=== PATIENT | male | born 1945 | race Caucasian/White ===

== ENCOUNTER → 2017-05-29 | Outpatient (CLI) | payer MEDICARE ==
[~2017-05-29] MED LIST: ASP325T PO; ASPI-586 PO; E400C PO; ENAL1TAB16 PO; HYDR-3583 PO; IBP600T1 PO; LEVO125T6 PO; MULT-608 PO; OMEG1CAP53 PO; SIMV20TA3 PO
--- NOTE | 2017-05-29 16:01 | Diagnostic Imaging Report ---
PROCEDURE: MRI lumbar spine. TECHNIQUE: Multiplanar, multisequence MRI of the lumbar spine was performed without contrast. INDICATION: Back pain. FINDINGS: There are no previous MRI examinations available for comparison. The lumbar spine exam performed on 03/06/2016 noted diffuse degenerative disease without evidence for an acute abnormality. On the T2 sagittal series of this exam, there is desiccation the disc at every level and narrowing of the disc spaces at L4-L5 and to a lesser degree L3-L4 and L5-S1. At the L5-S1 level, there is a focal disc protrusion to the left. The disc compresses the left ventral aspect of the thecal sac, resulting in mild spinal stenosis. The disc material does seem to be encroaching upon the exiting left nerve root at this level. At the L4-L5 level, there is a broad-based disc bulge centrally. The disc flattens the ventral aspect of the thecal sac and narrows the AP diameter of the thecal sac to 12.1 mm. There is also mild narrowing of the neuroforamen bilaterally at this level, particularly on the right. At the L3-L4 level, there is a disc bulge centrally which narrows the AP diameter of the thecal sac to 13.1 mm. There is also mild narrowing of the neuroforamen bilaterally at this level, again more so on the right. At L2-L3, the AP diameter of the thecal sac measures 8.3 mm. There is mild neuroforaminal narrowing bilaterally. At the L1-L2 level, there is no evidence for spinal stenosis or nerve root encroachment. There is a mild (10% or less) compression deformity of the superior endplate of L2. I suspect that this is longstanding in nature. There is no acute bony abnormality noted. There is no sign of a cord lesion. There is no paraspinal mass visualized. IMPRESSION: 1. There is a focal disc protrusion to the left at L5-S1. The disc does produce mild central stenosis but also appears to encroach upon the exiting left nerve root at this level. 2. There is mild trefoil stenosis at L2-L3 and mild narrowing of the neuroforamen bilaterally. 3. The remainder of the lumbar spine is unremarkable for spinal stenosis or nerve root encroachment. 4. There is a longstanding compression deformity of L2. There is no acute bony abnormality noted. Dictated by: Dictated on workstation # [id number]
== END ==
LOC: RAD 14:41
PROVIDERS: ATTEND Family Medicine
DX: M48.07 Spinal stenosis, lumbosacral region (principal); M51.17 Intervertebral disc disorders with radiculopathy, lumbosacral region; M43.8X6 Other specified deforming dorsopathies, lumbar region
CPT/HCPCS: 72148

== ENCOUNTER 2018-11-17 23:14 | Emergency (ER) | payer MEDICARE ==
[~2018-11-17] VITALS: Ht 180.3 cm; Wt 93.0 kg
[2018-11-17] MEDS ORDERED: TETANUS,DIPTH,PERTUSS P/F (BOOSTRIX) 0.5 ML VIAL IM ONE (23:45)
[2018-11-17] MEDS ORDERED: LIDOCAINE/EPI 2% 1:100,00 (XYLOCAINE) 20 ML VIAL INJ ONE (23:45)
[2018-11-18] MEDS ORDERED: SULF1TAB35 PO (00:10)
--- NOTE | 2018-11-18 00:10 | ED Upper Extremity ---
General Chief Complaint: Upper Extremity Stated Complaint: LEFT HAND LAC Nursing Triage Note: FELL COMMING UP STAIRS FROM THE BASEMENT AT HIS HOME AND CUT HIS LEFT HAND Nursing Sepsis Screen: No Definite Risk Source: patient History of Present Illness Date Seen by Provider: Nov 17, 2018 Time Seen by Provider: 23:34 Initial Comments PT ARRIVES VIA POV FROM HOME IN [place] C/O LACERATION TO LEFT HAND STATES ARMANDO RADFORD HAD GONE OFF IN [place], AND HAD BEEN IN BASEMENT HE WAS GETTING OUT OF THE BASEMENT, HE HAD HIS ARMS FULL, AND LOST HIS BALANCE, AND FELL AGAINST THE SHARP EDGE OF A METAL LOCKER, CUTTING HIS HAND. OCCURRED AROUND 2 HOURS AGO. NO PARESTHESIAS OR MOTOR DEFICITS NO OTHER INJURIES FROM THE INCIDENT NO PRIOR INJURIES TO THIS HAND PT IS RIGHT HANDED LAST TETANUS > 5 YEARS AGO PCP: DR. TOVAR Allergies and Home Medications Allergies Coded Allergies: No Known Drug Allergies (Verified , 11/18/18) Home Medications Aspirin 81 Mg Tablet.dr, 81 MG PO DAILY, (Reported) Enalapril/Hydrochlorothiazide 1 Tab Tablet, 1 TAB PO DAILY, (Reported) Levothyroxine Sodium 125 Mcg Tablet, 125 MCG PO DAILY, (Reported) Multivitamins 1 Tab Tablet, 1 TAB PO DAILY, (Reported) Devens-3 Fatty Acids/Fish Oil 1 Each Capsule.dr, 1,000 MG PO DAILY, (Reported) Simvastatin 20 Mg Tablet, 20 MG PO HS, (Reported) Sulfamethoxazole/Trimethoprim 1 Each Tablet, 1 EACH PO BID Prescribed by: MARGA AUGUSTIN on 11/18/18 0010 Vitamin E Acetate 400 Unit Capsule, 400 UNIT PO DAILY, (Reported) Patient Home Medication List Home Medication List Reviewed: Yes Review of Systems Constitutional: no symptoms reported Musculoskeletal: see HPI Skin: see HPI Psychiatric/Neurological: No Symptoms Reported Past Rtcejph-Dydqxc-Vpugve Hx Patient Social History Alcohol Use: Denies Use Recreational Drug Use: No Recent Foreign Travel: No Contact w/Someone Who Travel: No Recent Infectious Disease Expo: No Physical Abuse: No Sexual Abuse: No Mistreated: No Fear: No Immunizations Up To Date Tetanus Booster (TDap): More than 5yrs Date of Pneumonia Vaccine: July 26, 2010 Date of Influenza Vaccine: Jan 18, 2018 Past Medical History Surgeries: Yes (COLONOSCOPIES/POLYPECTOMIES WITH RIGHT HEMICOLECTOMY FOR POLYPS--NON-MALIGNANT) Abdominal, Bowel Surgery Respiratory: No Cardiac: Yes High Cholesterol, Hypertension Neurological: No Reproductive Disorders: No Genitourinary: No Gastrointestinal: Yes (POLYPECTOMIES AND RIGHT PRIYANKA-COLECTOMY FOR BENIGN POLYPS) Polyps Musculoskeletal: No Endocrine: Yes Hypothyroidsim HEENT: No (GLASSES) Cancer: No Psychosocial: No Integumentary: No Blood Disorders: No Physical Exam Vital Signs Vital Signs - First Documented 11/17/18 23:30 Temp 97.1 Pulse 91 Resp 18 B/P (MAP) 168/91 (116) Pulse Ox 92 Capillary Refill : Less Than 3 Seconds Height, Weight, BMI Height: 5'11.00" Weight: 205lbs. 0oz. 92.754651pd; 29.3 BMI Method:Stated General Appearance: WD/WN, no apparent distress Hand: Left (DORSAL ASPECT OF HAND OVER 5TH METACARPAL AREA WITH 3 CM FULL THICKNESS LINEAR LACERATION, MILD OOZING NOTED. MOTOR/SENSORY/VASCULAR INTACT. NO TENDON INJURY NOTED. NO FOREIGN BODY IDENTIFIED. 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, no motor/sensory deficits, alert, normal mood/affect, oriented x 3 Skin: normal color, warm/dry, other (LACERATION NOTED ABOVE) Procedures/Interventions Other Wound Location LEFT HAND Wound Length (cm): 3 Wound's Depth, Shape: linear, sub Q Wound Explored: clean Irrigated w/ Saline (ccs): 50 Betadine Prep?: No (BETASEPT) Anesthesia: Lidocaine w/ Epi (2%) Staple Repair: Stapler 35W Number of Sutures: 7 (ARLYN) Layer Closure?: 1 Sterile Dressing Applied?: Yes Progress/Results/Core Measures Results/Orders My Orders Orders - MARGA AUGUSTIN DO Dipht,Pertuss(Acell),Tet Adult (Boostrix (11/17/18 23:45) Lidocaine/Epi 2% 1:100,000 (Xylocaine/Ep (11/17/18 23:45) Sulfamethoxazole/Trimet Ds Tab (Bactrim (11/18/18 00:15) Wound Dressing-Ed (11/18/18 00:06) Medications Given in ED Current Medications Medications Dose Ordered Sig/Lamberto Route Start Time Stop Time Status Last Admin Dose Admin Diphtheria/ Tetanus/Acell Pertussis 0.5 ml ONCE ONCE IM 11/17/18 23:45 11/17/18 23:46 DC 11/17/18 23:56 0.5 ML Lidocaine/ Epinephrine 20 ml ONCE ONCE INJ 11/17/18 23:45 11/17/18 23:46 DC 11/17/18 23:57 20 ML Vital Signs/I&O 11/17/18 23:30 Temp 97.1 Pulse 91 Resp 18 B/P (MAP) 168/91 (116) Pulse Ox 92 Blood Pressure Mean: 116 Departure Impression Primary Impression: Laceration of left hand Additional Impression: Elksdtxrje-gjufajcjv-kdsglqq (DPT) vaccination administered at current visit Disposition: HOME, SELF-CARE Condition: Stable Departure-Patient Inst. Referrals: GLENN TOVAR MD (PCP/Family) Primary Care Physician Patient Instructions: Diphtheria and Tetanus Toxoids, and Acellular Pertussis Vaccine, Laceration Repair With Arlyn (DC) Add. Discharge Instructions: ICE TO AREA AT 20 MINUTE INTERVALS APPLY PRESSURE NEEDED IF AREA STARTS TO BLEED TYLENOL AND MOTRIN NEEDED FOR PAIN CLEAN AREA TWICE A DAY WITH ANTIBACTERIAL SOAP AND WATER, APPLY FRESH DRESSING TWICE A DAY ARLYN OUT IN 10-14 DAYS--RETURN TO ER FOR REMOVAL All discharge instructions reviewed with patient and/or family. Voiced understanding. Scripts Sulfamethoxazole/Trimethoprim (Bactrim Ds Tablet) 1 Each Tablet 1 EACH PO BID, #20 TAB Prov: MARGA AUGUSTIN DO 11/18/18 Images Extremities-Upper 1 - Laceration MARGA AUGUSTIN DO Nov 18, 2018 00:10
[2018-11-18] MEDS ORDERED: TRIM/SULFAMETH 160/800 (SEPTRA DS) TAB PO ONE (00:15)
[2018-11-18 00:19] VITALS: BP 168/91
== END 2018-11-18 00:19 | disposition home or self-care (01) ==
LOC: EDUNIT# 23:14 → ER 23:16
DX: S61.412A Laceration without foreign body of left hand, initial encounter (principal); I10 Essential (primary) hypertension; E78.00 Pure hypercholesterolemia, unspecified; E03.9 Hypothyroidism, unspecified; Z86.010 Personal history of colon polyps; Z23 Encounter for immunization; Z79.82 Long term (current) use of aspirin; W01.118A Fall on same level from slipping, tripping and stumbling with subsequent striking against other sharp object, initial encounter
CPT/HCPCS: 12002; 90715

== ENCOUNTER 2018-12-02 11:46 | Emergency (ER) | payer MEDICARE ==
[~2018-12-02] VITALS: Ht 180 cm; Wt 93.0 kg
[~2018-12-02 11:46] MED LIST changes: +SULF1TAB35 PO
[2018-12-02 12:24] VITALS: BP 116/71
== END 2018-12-02 12:24 | disposition home or self-care (01) ==
LOC: EDUNIT# 11:46 → ER 11:46
DX: S61.412A Laceration without foreign body of left hand, initial encounter (principal); X58.XXXA Exposure to other specified factors, initial encounter

== ENCOUNTER 2021-01-11 05:36 | Outpatient (CLI) | payer MEDICARE ==
[~2021-01-11] VITALS: Ht 180.3 cm; Wt 93.0 kg
[~2021-01-11 05:36] MED LIST changes: -SULF1TAB35 PO; +SULF1TAB38 PO
== END 2021-01-11 11:49 | disposition home or self-care (01) ==
LOC: PREOP 05:36
PROVIDERS: ATTEND Surgery
DX: Z01.818 Encounter for other preprocedural examination (principal)

== ENCOUNTER 2021-01-18 09:19 | Day surgery (SDC) | payer MEDICARE ==
--- NOTE | 2021-01-11 08:09 | HISTORY AND PHYSICAL ---
DATE OF SERVICE: DATE OF ADMISSION: ____. PROCEDURE DATE: 01/18/2021. ATTENDING PRIMARY CARE PHYSICIAN: Antonio Keating MD HISTORY OF PRESENT ILLNESS: The patient is a 75-year-old male who is known to us. He is in need of a followup colonoscopy. He did undergo a colonoscopy in 2011 and was found to have a large sessile as well as one small sessile polyp of the splenic flexure. These were consistent with a tubular adenoma. He was also found to have a larger sessile polyp at the ascending colon. 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 He did undergo a right hemicolectomy in 2011. He had a followup colonoscopy in 2012 by us, where he was found to have moderate sigmoid diverticulosis. He then underwent another followup colonoscopy in 09/2015, where he was found again to have a moderate sigmoid diverticulosis and a normal anastomosis. On today's visit, he reports that he is doing well. He denies any blood in the stool. He also denies any family history of any colon cancer. He reports that he is not having any issues with any diarrhea, constipation or any abdominal pain. PAST MEDICAL HISTORY: Hypertension, hypercholesterolemia, and hypothyroidism. PAST SURGICAL HISTORY: Right hemicolectomy in 2011, tonsillectomy and adenoidectomy. ALLERGIES: No known drug allergies. MEDICATIONS: Vitamin E, fish oil, multivitamin, aspirin 81 mg daily, simvastatin 20 mg daily, enalapril/hydrochlorothiazide 10/25 mg daily, and levothyroxine 125 mcg daily. SOCIAL HISTORY: Previous for tobacco smoke for 25 pack years, quit in 1995 and daily for alcohol. FAMILY HISTORY: Mother, lung cancer. Maternal grandfather, lung cancer. REVIEW OF SYSTEMS: A well-nourished male in no acute distress. He is not experiencing any shortness of breath or difficulty breathing. No chest pain, palpitations or diaphoresis. No nausea, vomiting or abdominal pain. No diarrhea or constipation. No red blood per rectum. No dark tarry stools. No fever or chills. No recent inadvertent weight loss. All other review of systems negative. PHYSICAL EXAMINATION: VITAL SIGNS: Blood pressure is 152/86. Current weight is 188.4 pounds at 5 feet 11 inches. CHEST: Clear. Good breath sounds bilaterally. HEART: Regular and no murmurs. EXTREMITIES: No lower extremity edema. Negative Homans sign. HEENT: No scleral icterus. NECK: No cervical lymphadenopathy. ABDOMEN: Soft, nontender, and nondistended. SKIN: Warm, dry and pink. NEUROLOGIC: Awake, alert and oriented x3. ASSESSMENT AND PLAN: A 75-year-old male with a history of colon polyps, who is status post right hemicolectomy in 2011 for a polyp with high-grade dysplasia. At this time, we will proceed with scheduling him for a screening colonoscopy. Job ID: [id number] DocumentID: [id number] Dictated Date: 01/06/2021 13:06:32 Automotive Mechanic Date: 01/06/2021 13:24:42 Dictated By: KINA JOE APRN
[2021-01-18] VITALS (7 sets, daily range): BP systolic 104–144; BP diastolic 68–82
[~2021-01-18] VITALS: Ht 180.3 cm; Wt 93.0 kg
[2021-01-18] MEDS ORDERED: LACTATED RINGERS 1,000 ML IV ONE (09:26)
[2021-01-18] MEDS ORDERED: LACTATED RINGERS 1,000 ML IV STA (09:29)
[2021-01-18] MEDS ORDERED: LIDOCAINE JELLY 2% 6 ML SYRINGE MM PRN (09:30)
[2021-01-18] MEDS ORDERED: MIDAZOLAM 2 MG/2 ML (VERSED) VIAL ONE (09:47)
[2021-01-18] MEDS ORDERED: PROPOFOL INJECTION 50 ML IV ONE (09:47)
--- NOTE | 2021-01-18 09:55 | Progress Note-Pre Operative ---
Pre-Operative Progress Note H&P Reviewed The H&P was reviewed, patient examined and no changes noted. Date Seen by Provider: Jan 18, 2021 Time Seen by Provider: : Date H&P Reviewed: Jan 18, 2021 Time H&P Reviewed: :30 Pre-Operative Diagnosis: hx polyps PAYAM BAIRD MD Jan 18, 2021 09:54
--- NOTE | 2021-01-18 09:56 | Discharge Inst-Surgical ---
D/C Lap Instructions-OLI Follow Up Activity as tolerated High Fiber Diet 25g or more per day Avoid Alcohol, Caffeine, Spicy [place] and Acid foods. Drink 64 fluid oz or more of fluids per day. Symptoms to Report: Fever over 101 degree F, Nausea/Vomiting If any problems/questions: Contact your physician or go to Emergency Room PAYAM BAIRD MD Jan 18, 2021 09:56
[2021-01-18] MEDS ORDERED: ONDANSETRON 4 MG (ZOFRAN) ORAL DISSOLVE TAB PO PRN (10:00)
[2021-01-18] MEDS ORDERED: ONDANSETRON 4 MG/2 ML (SDV) Z0FRAN IVP PRN (10:00)
--- NOTE | 2021-01-18 10:31 | Progress Note-Post Operative ---
Post-Operative Progess Note Surgeon (s)/Labour Market Economist (s) Surgeon PAYAM BAIRD MD Labour Market Economist: none Pre-Operative Diagnosis hx polyps Post-Operative Diagnosis chronic stage 2 ext and int hemorrhoids, mod-severe sigmoid diverticulosis. Procedure & Operative Findings Date of Procedure 01/18/21 Procedure Performed/Findings colonoscopy Anesthesia Type mac Estimated Blood Loss Estimated blood loss (mL): minimal Specimens/Packing Specimens Removed none PAYAM BAIRD MD Jan 18, 2021 10:31
--- NOTE | 2021-01-18 14:38 | OPERATIVE REPORT ---
DATE OF SERVICE: 01/18/2021 ATTENDING PRIMARY CARE PHYSICIAN: Dr. Atilio Keating. PREOPERATIVE DIAGNOSIS: Screening colonoscopy with history of sessile polyp with high-grade dysplasia, status post right hemicolectomy in 2012. POSTOPERATIVE DIAGNOSES: Screening colonoscopy with history of sessile polyp with high-grade dysplasia, status post right hemicolectomy in 2012 with mild chronic stage II external and internal hemorrhoids, xbjeukyv-lz-jjzqmj sigmoid diverticulosis. PROCEDURE: Colonoscopy. SURGEON: Payam Baird MD ANESTHESIA: Monitored anesthesia care. ESTIMATED BLOOD LOSS: Minimal. FINDINGS: Same as postoperative diagnoses. DISPOSITION: The patient tolerated the procedure well. INDICATIONS: The patient is a 75-year-old male known to us. He is in need of a followup colonoscopy. He underwent a colonoscopy in 2012 and was found to have large sessile polyp at the splenic flexure as well as the ascending colon, which were biopsied and found to contain high-grade dysplasia and he underwent a right hemicolectomy. He is otherwise doing well and does state some issues with constipation, no red blood per rectum, no dark tarry stools. DESCRIPTION OF PROCEDURE: The patient was brought to the endoscopy suite, laid in left lateral decubitus position. After adequate IV pain and sedative medications and conscious sedation and monitored anesthesia care, a digital rectal examination was performed. Mild chronic stage II external and internal hemorrhoids were identified, which were not actively edematous nor inflamed and no bleeding. Normal sphincter tone was felt and there were no palpable masses. Prostate gland was palpable and appeared normal. The endoscope was then intubated into the anus and rectum gently insufflated. The endoscope was then advanced through the valves of Ye of the rectum with no polyps or any neoplasms identified. Through the sigmoid colon, a moderate to severe sigmoid diverticulosis identified. A few of these were still impacted with hard stools. There was no inflammation to indicate any active diverticulitis. The endoscope was then advanced to the remainder of the descending and transverse colon to the ileocolonic anastomosis, which was normal. No recurrent lesions. The endoscope was then slowly withdrawn while taking a second look and suctioning of residual air with no additional findings. The patient tolerated the procedure well. We will recommend medical management with incorporation of a high-fiber diet with a fiber supplement, which should equal or exceed 30 grams daily as well as significant amounts of water to promote soft stools on a daily basis and prevent any further propagation of diverticulosis or the associated complications. Due to his personal history of high-grade dysplasia of a sessile polyp, we will recommend a followup colonoscopy in approximately 5 years. Job ID: [id number] DocumentID: [id number] Dictated Date: 01/18/2021 10:21:36 Pot Washer Date: 01/18/2021 14:37:19 Dictated By: PAYAM BAIRD MD
--- NOTE | 2021-01-18 14:44 | Anesthesia-General Post-Op ---
MAC Patient Condition Mental Status/LOC: Same as Preop Cardiovascular: Satisfactory Nausea/Vomiting: Absent Respiratory: Satisfactory Pain: Controlled Complications: Absent Post Op Complications Complications None Follow Up Care/Instructions Patient Instructions None needed. Anesthesiology Discharge Order Discharge Order Patient is doing well, no complaints, stable vital signs, no apparent adverse anesthesia problems. No complications reported per nursing. ROSI PISANO CRNA Jan 18, 2021 14:44
== END 2021-01-18 11:00 | disposition home or self-care (01) ==
LOC: ENDO 09:19
PROVIDERS: ATTEND Surgery
DX: Z12.11 Encounter for screening for malignant neoplasm of colon (principal); K64.1 Second degree hemorrhoids; K64.4 Residual hemorrhoidal skin tags; K57.30 Diverticulosis of large intestine without perforation or abscess without bleeding; I10 Essential (primary) hypertension; E03.9 Hypothyroidism, unspecified; E78.00 Pure hypercholesterolemia, unspecified; Z86.010 Personal history of colon polyps; Z98.890 Other specified postprocedural states; Z79.82 Long term (current) use of aspirin; Z87.891 Personal history of nicotine dependence; Z79.890 Hormone replacement therapy; Z79.899 Other long term (current) drug therapy; Z90.89 Acquired absence of other organs; Z80.1 Family history of malignant neoplasm of trachea, bronchus and lung

== ENCOUNTER → 2021-02-21 | Outpatient (CLI) | payer MEDICARE ==
--- NOTE | 2021-02-21 16:58 | Diagnostic Imaging Report ---
INDICATION: Right shoulder pain AP, transscapular, and transaxillary views of the right shoulder are obtained. No fracture or acute bony abnormality seen. There is advanced degenerative change of the glenohumeral joint with severe joint space narrowing and subchondral sclerosis and osteophyte formation. There is degenerative change of the AC joint. 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 No acute fracture or dislocation. Dictated by: Dictated on workstation # [id number]
== END ==
LOC: ORTHO 14:56
PROVIDERS: ATTEND Orthopaedic Surgery
DX: M19.011 Primary osteoarthritis, right shoulder (principal)
CPT/HCPCS: 73030; G0463; 99202